=== PATIENT | female | born 1945 | race Caucasian/White ===

== ENCOUNTER 2019-01-24 14:21 | Outpatient (CLI) | payer MEDICARE ==
--- NOTE | 2019-01-24 15:57 | BD ---
Exam: DEXA Bone Density 01/24/19 PROVIDED CLINICAL HISTORY: Screening. Lumbar Spine: BMD (g/cm2) T-SCORE L1 0.904 -0.8 L2 0.978 -0.5 L3 1.036 -0.4 L4 1.141 0.7 L1-L4 1.018 0.3 Femoral Neck: 0.642 -1.9 Total Femur: 0.817 -1.0 Ten year fracture risk: Major osteoporotic fracture: 13% Hip fracture: 3%. Impression: Calculated bone mineral density meets WHO criteria for osteopenia in the left femoral neck and places the patient at increased risk for fracture. POS: [facility]
== END 2019-01-24 14:22 | disposition home or self-care (01) ==
LOC: BICMAMMO 14:21
PROVIDERS: ATTEND Family Medicine
DX: Z13.820 Encounter for screening for osteoporosis (principal); M85.852 Other specified disorders of bone density and structure, left thigh
CPT/HCPCS: 77080

== ENCOUNTER 2020-01-25 16:52 | Emergency (ER) | payer MEDICARE ==
[2020-01-25 17:43] LABS: #Basophils 0.1 thou/uL (0.0-0.2); #Eosinphils 0.2 thou/uL (0.0-0.7); #Lymphocytes 1.4 thou/uL (1.20-3.40); #Monocytes 0.3 thou/uL (0.11-0.59); #Neutrophils 2.8 thou/uL (1.40-6.50); %Basophils 1.4 % (0.0-1.0); %Eosinophils 4.6 % (0.0-10.0); %Lymphocytes 28.9 % (21.0-51.0); %Neutrophils 58.1 % (42.0-75.0); Hemoglobin 14.4 g/dL (12.0-16.0); Mean Corpuscular Hemoglobin 34.6 pg (27.0-31.0); Mean Corpuscular Volume 98.7 fL (78.0-98.0); Mean Platelet Volume 7.7 fL (7.4-10.4); Platelet Count 170 thou/uL (130-400); RBC Distribution Width 11.9 % (11.5-14.5); Red Blood Cell (RBC) Count 4.16 mill/uL (4.20-5.40); White Blood Cell (WBC) Count 4.8 thou/uL (4.8-10.8)
[2020-01-25 17:57] LABS: ALT (SGPT) 16 U/L (8-55); AST (SGOT) 24 U/L (5-34); Albumin 4.3 g/dL (3.4-4.8); Alkaline Phosphatase 63 U/L (40-110); Anion Gap 15 mmol/L (10-20); BUN (Urea Nitrogen) 17 mg/dL (9.8-20.1); Bilirubin, Total 0.6 mg/dL (0.2-1.2); Calc. Creatinine Clearance 0 mL/min (70-130); Calcium 9.1 mg/dL (7.8-10.44); Carbon Dioxide 24 mmol/L (23-31); Chloride 106 mmol/L (98-107); Estimated GFR-MDRD 50; Globulin 2.6 g/dL (2.4-3.5); Glucose 120 mg/dL (83-110); Protein, Total 6.9 g/dL (6.0-8.3); Sodium 141 mmol/L (136-145)
--- NOTE | 2020-01-25 20:09 | RAD ---
PORTABLE CHEST: Date: 01-25-2020 PROVIDED CLINICAL HISTORY: Light headedness and nausea FINDINGS: Comparison 02-06-17. Cardiac and mediastinal silhouette is within normal limits. No focal consolidation, pleural fluid or pneumothorax apparent. IMPRESSION: No evidence for an acute cardiopulmonary process. POS: [facility]
== END 2020-01-25 19:56 | disposition home or self-care (01) ==
LOC: ERS 16:52
DX: I49.1 Atrial premature depolarization (principal); E03.9 Hypothyroidism, unspecified; Z79.899 Other long term (current) drug therapy
CPT/HCPCS: 71045; 80053; 84443; 84484; 85025; 93005

== ENCOUNTER 2020-08-18 11:16 | Observation (INO) | payer MEDICARE ==
[2020-08-18 11:49] LABS: #Basophils 0.1 thou/uL (0.0-0.2); #Eosinphils 0.2 thou/uL (0.0-0.7); #Lymphocytes 1.2 thou/uL (1.20-3.40); #Monocytes 0.4 thou/uL (0.11-0.59); #Neutrophils 2.3 thou/uL (1.40-6.50); %Basophils 1.6 % (0.0-1.0); %Eosinophils 3.9 % (0.0-10.0); %Lymphocytes 28.8 % (21.0-51.0); %Monocytes 9.3 % (0.0-10.0); %Neutrophils 56.4 % (42.0-75.0); Hemoglobin 14.5 g/dL (12.0-16.0); Mean Corpuscular HGB CONC 35.3 g/dL (32.0-36.0); Mean Corpuscular Hemoglobin 34.6 pg (27.0-31.0); Mean Corpuscular Volume 98.1 fL (78.0-98.0); Mean Platelet Volume 8.1 fL (7.4-10.4); Platelet Count 139 thou/uL (130-400); Red Blood Cell (RBC) Count 4.19 mill/uL (4.20-5.40); White Blood Cell (WBC) Count 4.1 thou/uL (4.8-10.8)
[2020-08-18] MEDS ORDERED: Aspirin Chewable 81 MG TAB ONE (12:14)
[2020-08-18 12:21] LABS: ALT (SGPT) 18 U/L (8-55); AST (SGOT) 23 U/L (5-34); Alkaline Phosphatase 64 U/L (40-110); Anion Gap 14 mmol/L (10-20); BUN (Urea Nitrogen) 16 mg/dL (9.8-20.1); Bilirubin, Total 0.6 mg/dL (0.2-1.2); Calc. Creatinine Clearance 0 mL/min (70-130); Calcium 9.2 mg/dL (7.8-10.44); Carbon Dioxide 24 mmol/L (23-31); Chloride 107 mmol/L (98-107); Globulin 2.8 g/dL (2.4-3.5); Glucose 105 mg/dL (83-110); Protein, Total 6.8 g/dL (5.8-8.1); Sodium 141 mmol/L (136-145)
[2020-08-18] MEDS ORDERED: Acetaminophen 325 MG TAB PO PRN (14:30)
[2020-08-18 14:49] VITALS: BMI 29.7
[2020-08-18 15:32] LABS: Troponin I 0.012 ng/mL (< 0.028)
[2020-08-18 18:21] LABS: Troponin I Less than 0.010 ng/mL (< 0.028)
[2020-08-18] MEDS: rOPINIRole HCl 1 MG TAB PO SCH (20:15)
[2020-08-18] MEDS ORDERED: Amlodipine 5 MG TAB PO SCH (21:00)
[2020-08-18] MEDS ORDERED: ALPRAZolam 0.5 MG TAB PO SCH (21:00)
[2020-08-18 21:05] LABS: SARS-CoV-2 PCR by NAA Not Detected (NotDetected)
[2020-08-19] MEDS ORDERED: Thyroid 60 MG TAB PO SCH ×2 (06:00→09:00)
[2020-08-19] MEDS: rOPINIRole HCl 1 MG TAB PO SCH (08:02)
[2020-08-19] MEDS ORDERED: Metoprolol Tartrate 25 MG TAB PO SCH (09:00)
[2020-08-19 09:24] LABS: Anion Gap 11 mmol/L (10-20); BUN (Urea Nitrogen) 15 mg/dL (9.8-20.1); Calc. Creatinine Clearance 60 mL/min (70-130); Calcium 9.5 mg/dL (7.8-10.44); Carbon Dioxide 28 mmol/L (23-31); Chloride 106 mmol/L (98-107); Glucose 107 mg/dL (83-110); Magnesium 1.9 mg/dL (1.6-2.6); Potassium 4.1 mmol/L (3.5-5.1); Sodium 141 mmol/L (136-145)
[2020-08-19 12:49] VITALS: BP 130/62; TEMP 97.8
== END 2020-08-19 13:10 | disposition home or self-care (01) ==
LOC: ERS 11:16 → 2SW 12:56
PROVIDERS: ADMIT Internal Medicine; ATTEND Internal Medicine
DX: R07.89 Other chest pain (principal); R42 Dizziness and giddiness; R53.1 Weakness; R00.2 Palpitations; I12.9 Hypertensive chronic kidney disease with stage 1 through stage 4 chronic kidney disease, or unspecified chronic kidney disease; N18.30 Chronic kidney disease, stage 3 unspecified; R73.03 Prediabetes; E03.9 Hypothyroidism, unspecified; G43.909 Migraine, unspecified, not intractable, without status migrainosus; G25.81 Restless legs syndrome; K21.9 Gastro-esophageal reflux disease without esophagitis; G47.30 Sleep apnea, unspecified; D72.819 Decreased white blood cell count, unspecified; D75.89 Other specified diseases of blood and blood-forming organs; Z79.83 Long term (current) use of bisphosphonates; Z79.899 Other long term (current) drug therapy; Z20.822 Contact with and (suspected) exposure to COVID-19
CPT/HCPCS: 70450; 71045; 80048; 83735; 84484 ×2; 93005; 97116; 97139; 99285; G0378 ×3; U0003; U0005; 36415; 80053; 84443; 85025

== ENCOUNTER 2020-08-28 19:29 | Emergency (ER) | payer MEDICARE ==
[~2020-08-28 19:29] MED LIST: Iopamidol-370 76% 500 ML 1 ML ONE
[2020-08-28 20:07] LABS: #Eosinphils 0.3 thou/uL (0.0-0.7); #Lymphocytes 1.8 thou/uL (1.20-3.40); #Monocytes 0.4 thou/uL (0.11-0.59); #Neutrophils 2.1 thou/uL (1.40-6.50); %Basophils 0.6 % (0.0-1.0); %Eosinophils 5.6 % (0.0-10.0); %Lymphocytes 39.3 % (21.0-51.0); %Monocytes 8.1 % (0.0-10.0); %Neutrophils 46.3 % (42.0-75.0); Hemoglobin 14.2 g/dL (12.0-16.0); Mean Corpuscular HGB CONC 35.8 g/dL (32.0-36.0); Mean Corpuscular Hemoglobin 34.9 pg (27.0-31.0); Mean Corpuscular Volume 97.6 fL (78.0-98.0); Mean Platelet Volume 8.1 fL (7.4-10.4); Platelet Count 161 thou/uL (130-400); RBC Distribution Width 12.1 % (11.5-14.5); Red Blood Cell (RBC) Count 4.06 mill/uL (4.20-5.40); White Blood Cell (WBC) Count 4.6 thou/uL (4.8-10.8)
[2020-08-28 20:28] LABS: ALT (SGPT) 21 U/L (8-55); AST (SGOT) 28 U/L (5-34); Albumin 4.1 g/dL (3.4-4.8); Alkaline Phosphatase 74 U/L (40-110); Anion Gap 15 mmol/L (10-20); BUN (Urea Nitrogen) 14 mg/dL (9.8-20.1); Bilirubin, Total 0.6 mg/dL (0.2-1.2); CK (CPK) 91 U/L (29-168); Calc. Creatinine Clearance 0 mL/min (70-130); Calcium 9.4 mg/dL (7.8-10.44); Carbon Dioxide 21 mmol/L (23-31); Chloride 106 mmol/L (98-107); Globulin 3.1 g/dL (2.4-3.5); Glucose 143 mg/dL (83-110); Lipase 5 U/L (8-78); Potassium 3.8 mmol/L (3.5-5.1); Protein, Total 7.2 g/dL (5.8-8.1); Sodium 138 mmol/L (136-145)
[2020-08-28] MEDS ORDERED: Morphine 4 MG/ML VIAL ONE (20:30)
[2020-08-28] MEDS ORDERED: Ondansetron PF 4 MG/2 ML Vial ONE (20:30)
[2020-08-28] MEDS ORDERED: Nitroglycerin 0.4 MG TAB 1 EACH ONE (20:42)
[2020-08-28 22:55] LABS: Troponin I Less than 0.010 ng/mL (< 0.028)
== END 2020-08-28 23:30 | disposition home or self-care (01) ==
LOC: ERS 19:29
DX: R07.89 Other chest pain (principal); M54.2 Cervicalgia; R42 Dizziness and giddiness; E03.9 Hypothyroidism, unspecified; Z79.899 Other long term (current) drug therapy
CPT/HCPCS: 36415; 70496; 70498; 71045; 80053; 82550; 83690; 84484; 85025; 93005; 96374; 96375; J2270; J2405; Q9967

== ENCOUNTER 2020-09-06 22:14 | Observation (INO) | payer MEDICARE ==
[2020-09-06 22:36] LABS: #Basophils 0.1 thou/uL (0.0-0.2); #Eosinphils 0.3 thou/uL (0.0-0.7); #Lymphocytes 1.6 thou/uL (1.20-3.40); #Monocytes 0.4 thou/uL (0.11-0.59); %Basophils 1.8 % (0.0-1.0); %Eosinophils 6.7 % (0.0-10.0); %Lymphocytes 36.4 % (21.0-51.0); %Monocytes 9.1 % (0.0-10.0); %Neutrophils 46.1 % (42.0-75.0); Hemoglobin 14.3 g/dL (12.0-16.0); Mean Corpuscular HGB CONC 34.5 g/dL (32.0-36.0); Mean Corpuscular Hemoglobin 34.2 pg (27.0-31.0); Mean Corpuscular Volume 99.1 fL (78.0-98.0); Mean Platelet Volume 8.2 fL (7.4-10.4); Platelet Count 150 thou/uL (130-400); RBC Distribution Width 12.1 % (11.5-14.5); Red Blood Cell (RBC) Count 4.18 mill/uL (4.20-5.40); White Blood Cell (WBC) Count 4.4 thou/uL (4.8-10.8)
[2020-09-06 22:56] LABS: ALT (SGPT) 19 U/L (8-55); AST (SGOT) 26 U/L (5-34); Albumin 4.2 g/dL (3.4-4.8); Alkaline Phosphatase 64 U/L (40-110); Anion Gap 14 mmol/L (10-20); BUN (Urea Nitrogen) 12 mg/dL (9.8-20.1); Bilirubin, Total 0.6 mg/dL (0.2-1.2); Calc. Creatinine Clearance 0 mL/min (70-130); Calcium 9.2 mg/dL (7.8-10.44); Carbon Dioxide 24 mmol/L (23-31); Chloride 107 mmol/L (98-107); Globulin 3.1 g/dL (2.4-3.5); Glucose 132 mg/dL (83-110); Potassium 4.1 mmol/L (3.5-5.1); Protein, Total 7.3 g/dL (5.8-8.1); Sodium 141 mmol/L (136-145)
[2020-09-07] MEDS ORDERED: Aspirin Chewable 81 MG TAB ONE (02:02)
[2020-09-07 02:47] LABS: Troponin I Less than 0.010 ng/mL (< 0.028)
[2020-09-07 07:08] LABS: Troponin I Less than 0.010 ng/mL (< 0.028)
[2020-09-07 11:14] LABS: SARS-CoV-2 PCR by NAA Not Detected (NotDetected)
[2020-09-07 14:40] VITALS: BP 142/75; TEMP 97.6; BMI 29.9
[2020-09-07] MEDS ORDERED: Sodium Chloride 0.9% (PF) 10 ML VIAL FS PRN (15:15)
[2020-09-07] MEDS ORDERED: rOPINIRole HCl 1 MG TAB PO SCH ×2 (15:45→21:00)
[2020-09-07] MEDS ORDERED: Pantoprazole 40 MG VIAL IVP SCH (21:00)
== END 2020-09-07 16:25 | disposition home or self-care (01) ==
LOC: ERS 22:14 → ERHOLD 09-07 02:03 → 2SW 09-07 12:11
PROVIDERS: ADMIT Internal Medicine; ATTEND Internal Medicine
DX: R07.89 Other chest pain (principal); R10.13 Epigastric pain; E03.9 Hypothyroidism, unspecified; I10 Essential (primary) hypertension; G25.81 Restless legs syndrome; K76.0 Fatty (change of) liver, not elsewhere classified; I49.1 Atrial premature depolarization; K21.9 Gastro-esophageal reflux disease without esophagitis; G47.33 Obstructive sleep apnea (adult) (pediatric); Z79.83 Long term (current) use of bisphosphonates; Z79.899 Other long term (current) drug therapy; Z20.822 Contact with and (suspected) exposure to COVID-19
CPT/HCPCS: 71045; 80053; 83690; 84484 ×3; 85025; 93005 ×2; 93975; G0378 ×2; U0003; U0005; 36415

== ENCOUNTER 2021-01-31 14:09 | Outpatient (CLI) | payer MEDICARE | END 2021-01-31 14:10 | disposition home or self-care (01) | LOC: BICRAD 14:09 | PROVIDERS: ATTEND Family Medicine | DX: M54.2 Cervicalgia (principal); M25.512 Pain in left shoulder; M47.812 Spondylosis without myelopathy or radiculopathy, cervical region; M19.012 Primary osteoarthritis, left shoulder | CPT/HCPCS: 72052 ==

== ENCOUNTER 2021-03-07 12:38 | Outpatient (CLI) | payer MEDICARE | END 2021-03-07 12:39 | disposition home or self-care (01) | LOC: SCSMRI 12:38 | PROVIDERS: ATTEND Orthopaedic Surgery | DX: M75.102 Unspecified rotator cuff tear or rupture of left shoulder, not specified as traumatic (principal); S43.432A Superior glenoid labrum lesion of left shoulder, initial encounter; S43.002A Unspecified subluxation of left shoulder joint, initial encounter ==

== ENCOUNTER 2021-08-16 16:48 | Inpatient (IN) | payer MEDICARE ==
[2021-08-16 17:24] LABS: #Eosinphils 0.2 thou/uL (0.0-0.7); #Monocytes 0.4 thou/uL (0.11-0.59); #Neutrophils 2.9 thou/uL (1.40-6.50); %Basophils 0.5 % (0.0-1.0); %Eosinophils 3.8 % (0.0-10.0); %Lymphocytes 35.9 % (21.0-51.0); %Monocytes 7.3 % (0.0-10.0); %Neutrophils 52.5 % (42.0-75.0); Hemoglobin 13.2 g/dL (12.0-16.0); Mean Corpuscular HGB CONC 33.9 g/dL (32.0-36.0); Mean Corpuscular Hemoglobin 34.1 pg (27.0-31.0); Mean Platelet Volume 7.8 fL (7.4-10.4); Platelet Count 183 thou/uL (130-400); RBC Distribution Width 11.8 % (11.5-14.5); Red Blood Cell (RBC) Count 3.88 mill/uL (4.20-5.40); White Blood Cell (WBC) Count 5.5 thou/uL (4.8-10.8)
[2021-08-16 17:45] LABS: ALT (SGPT) 25 U/L (8-55); AST (SGOT) 29 U/L (5-34); Albumin 4.2 g/dL (3.4-4.8); Alkaline Phosphatase 71 U/L (40-110); Anion Gap 14 mmol/L (10-20); BUN (Urea Nitrogen) 20 mg/dL (9.8-20.1); Bilirubin, Total 0.6 mg/dL (0.2-1.2); Calc. Creatinine Clearance 0 mL/min (70-130); Calcium 9.2 mg/dL (7.8-10.44); Carbon Dioxide 24 mmol/L (23-31); Chloride 104 mmol/L (98-107); Globulin 2.7 g/dL (2.4-3.5); Glucose 88 mg/dL (83-110); Lipase 4 U/L (8-78); Potassium 4.1 mmol/L (3.5-5.1); Protein, Total 6.9 g/dL (5.8-8.1); Sodium 138 mmol/L (136-145)
[2021-08-16] MEDS ORDERED: Aspirin 325 MG TAB ONE (17:55)
[2021-08-16] MEDS ORDERED: Nitroglycerin 2% Ointment 1 INCH/1 GM Packet ONE (18:16)
[2021-08-16 20:43] VITALS: BMI 31.8
[2021-08-16] MEDS ORDERED: Meclizine HCl 25 MG TAB PO PRN (22:06)
[2021-08-16] MEDS ORDERED: valACYclovir 500 MG TAB PO PRN (22:06)
[2021-08-16] MEDS ORDERED: ALPRAZolam 0.5 MG TAB PO SCH (23:00)
[2021-08-16] MEDS ORDERED: rOPINIRole HCl 1 MG TAB PO SCH (23:00)
[2021-08-16] MEDS ORDERED: Morphine 2 MG/ML VIAL SLOW IVP PRN (23:45)
[2021-08-16] MEDS ORDERED: Lisinopril 10 MG TAB PO SCH (23:59)
[2021-08-17] MEDS ORDERED: Ondansetron ODT 4 MG TAB PO PRN (01:03)
[2021-08-17] MEDS ORDERED: Ondansetron PF 4 MG/2 ML Vial IVP PRN (01:03)
[2021-08-17] MEDS ORDERED: Acetaminophen 650 MG Suppository PR PRN (01:03)
[2021-08-17] MEDS ORDERED: Nitroglycerin 0.4 MG TAB (25 Tab Bottle) SL PRN (04:12)
[2021-08-17 04:39] LABS: #Eosinphils 0.2 thou/uL (0.0-0.7); #Lymphocytes 1.5 thou/uL (1.20-3.40); #Monocytes 0.4 thou/uL (0.11-0.59); #Neutrophils 2.4 thou/uL (1.40-6.50); %Basophils 0.7 % (0.0-1.0); %Eosinophils 5.3 % (0.0-10.0); %Lymphocytes 32.7 % (21.0-51.0); %Monocytes 8.7 % (0.0-10.0); %Neutrophils 52.6 % (42.0-75.0); Hemoglobin 12.6 g/dL (12.0-16.0); Mean Corpuscular Hemoglobin 34.4 pg (27.0-31.0); Mean Platelet Volume 7.5 fL (7.4-10.4); Platelet Count 146 thou/uL (130-400); RBC Distribution Width 11.6 % (11.5-14.5); Red Blood Cell (RBC) Count 3.67 mill/uL (4.20-5.40); White Blood Cell (WBC) Count 4.5 thou/uL (4.8-10.8)
[2021-08-17 04:58] LABS: Anion Gap 10 mmol/L (10-20); BUN (Urea Nitrogen) 20 mg/dL (9.8-20.1); Calc. Creatinine Clearance 56 mL/min (70-130); Calcium 8.7 mg/dL (7.8-10.44); Carbon Dioxide 25 mmol/L (23-31); Chloride 107 mmol/L (98-107); Glucose 111 mg/dL (83-110); Sodium 138 mmol/L (136-145)
[2021-08-17] MEDS ORDERED: ADENOSINE 60 MG/20 ML VIAL ONE (08:44)
[2021-08-17 12:00] LABS: SARS-CoV-2 PCR by NAA Not Detected (NotDetected)
[2021-08-17] MEDS: rOPINIRole HCl 1 MG TAB PO SCH ×3 (13:25→21:08)
[2021-08-17] MEDS: Aspirin Chewable 81 MG TAB PO SCH (13:25)
[2021-08-17] MEDS: Lisinopril 10 MG TAB PO SCH (21:08)
[2021-08-17] MEDS: ALPRAZolam 0.5 MG TAB PO SCH (21:08)
[2021-08-17] MEDS: Bisacodyl 5 MG TAB PO SCH (21:08)
[2021-08-18] MEDS ORDERED: Communication Order-Pharmacy FS SCH (08:45)
[2021-08-18] MEDS ORDERED: Sodium Chloride 0.9% 1,000 ML IV SCH ×2 (08:45→14:41)
[2021-08-18] MEDS ORDERED: Iopamidol 370 76% 100 ML VIAL ONE (08:53)
[2021-08-18] MEDS ORDERED: Iopamidol 370 76% 50 ML VIAL FS ONE (08:53)
[2021-08-18] MEDS: Aspirin Chewable 81 MG TAB PO SCH (09:31)
[2021-08-18] MEDS ORDERED: Lidocaine 1% (PF) 30 ML VIAL ONE (12:52)
[2021-08-18] MEDS ORDERED: Fentanyl 100 MCG/2 ML VIAL ONE (13:40)
[2021-08-18] MEDS ORDERED: Midazolam HCl 2 mg/2 ml Vial ONE (13:40)
[2021-08-18] MEDS ORDERED: Heparin 10,000 UNITS/ 10 ML VIAL ONE (13:41)
[2021-08-18] MEDS ORDERED: Adenosine 6 MG/2 ML VIAL ONE (14:08)
[2021-08-18] MEDS ORDERED: Bivalirudin 250 MG VIAL ONE (14:08)
[2021-08-18] MEDS: rOPINIRole HCl 1 MG TAB PO SCH ×3 (15:33→22:10)
[2021-08-18] MEDS ORDERED: Acetaminophen 325 MG TAB ONE (15:42)
[2021-08-18] MEDS: Acetaminophen 325 MG TAB PO PRN ×2 (15:45→22:56)
[2021-08-18] MEDS ORDERED: Rosuvastatin 10 MG TAB PO SCH (21:00)
[2021-08-18] MEDS: Lisinopril 10 MG TAB PO SCH (22:09)
[2021-08-18] MEDS: Bisacodyl 5 MG TAB PO SCH (22:09)
[2021-08-18] MEDS: ALPRAZolam 0.5 MG TAB PO SCH (22:11)
[2021-08-19 05:50] LABS: #Eosinphils 0.1 thou/uL (0.0-0.7); #Lymphocytes 1.2 thou/uL (1.20-3.40); #Monocytes 0.4 thou/uL (0.11-0.59); #Neutrophils 2.8 thou/uL (1.40-6.50); %Basophils 0.4 % (0.0-1.0); %Eosinophils 2.6 % (0.0-10.0); %Lymphocytes 26.2 % (21.0-51.0); %Monocytes 7.8 % (0.0-10.0); %Neutrophils 62.9 % (42.0-75.0); Hemoglobin 13.7 g/dL (12.0-16.0); Mean Corpuscular HGB CONC 33.4 g/dL (32.0-36.0); Mean Corpuscular Hemoglobin 34.1 pg (27.0-31.0); Mean Platelet Volume 7.9 fL (7.4-10.4); Platelet Count 159 thou/uL (130-400); RBC Distribution Width 11.7 % (11.5-14.5); Red Blood Cell (RBC) Count 4.02 mill/uL (4.20-5.40); White Blood Cell (WBC) Count 4.5 thou/uL (4.8-10.8)
[2021-08-19] MEDS ORDERED: Levothyroxine Sodium 25 MCG TAB PO SCH (06:00)
[2021-08-19 06:12] LABS: ALT (SGPT) 21 U/L (8-55); AST (SGOT) 23 U/L (5-34); Albumin 3.9 g/dL (3.4-4.8); Alkaline Phosphatase 59 U/L (40-110); Anion Gap 11 mmol/L (10-20); BUN (Urea Nitrogen) 15 mg/dL (9.8-20.1); Bilirubin, Total 0.6 mg/dL (0.2-1.2); Calc. Creatinine Clearance 74 mL/min (70-130); Calcium 8.9 mg/dL (7.8-10.44); Carbon Dioxide 24 mmol/L (23-31); Chloride 106 mmol/L (98-107); Globulin 2.8 g/dL (2.4-3.5); Glucose 120 mg/dL (83-110); Potassium 3.8 mmol/L (3.5-5.1); Protein, Total 6.7 g/dL (5.8-8.1); Sodium 137 mmol/L (136-145)
[2021-08-19 07:46] VITALS: BP 150/71; TEMP 97.9
[2021-08-19] MEDS: Aspirin Chewable 81 MG TAB PO SCH (09:03)
[2021-08-19] MEDS: rOPINIRole HCl 1 MG TAB PO SCH (09:04)
== END 2021-08-19 11:35 | disposition home or self-care (01) | DRG 287 ==
LOC: ERS 16:48 → 2SW 18:24 → OBSVTOIN 08-17 17:58
PROVIDERS: ADMIT Internal Medicine; ATTEND Internal Medicine
PROC: 4A023N7 Measurement of Cardiac Sampling and Pressure, Left Heart, Percutaneous Approach (ICD-10-PCS; principal; 2021-08-18)
PROC: B2111ZZ Fluoroscopy of Multiple Coronary Arteries using Low Osmolar Contrast (ICD-10-PCS; 2021-08-18)
PROC: B2151ZZ Fluoroscopy of Left Heart using Low Osmolar Contrast (ICD-10-PCS; 2021-08-18)
DX: R07.89 Other chest pain (principal); E03.9 Hypothyroidism, unspecified; G25.81 Restless legs syndrome; R53.1 Weakness; D75.89 Other specified diseases of blood and blood-forming organs; G47.33 Obstructive sleep apnea (adult) (pediatric); I11.0 Hypertensive heart disease with heart failure; J98.4 Other disorders of lung; R51.9 Headache, unspecified; R11.2 Nausea with vomiting, unspecified; R40.0 Somnolence; I50.9 Heart failure, unspecified; Z20.822 Contact with and (suspected) exposure to COVID-19; Z99.81 Dependence on supplemental oxygen; Z91.19 Patient's noncompliance with other medical treatment and regimen; Z90.49 Acquired absence of other specified parts of digestive tract; Z98.890 Other specified postprocedural states; Z72.89 Other problems related to lifestyle; Z79.890 Hormone replacement therapy; Z79.899 Other long term (current) drug therapy; Z86.16 Personal history of COVID-19; Z79.82 Long term (current) use of aspirin
CPT/HCPCS: 36415; 71045; 71250; 78452; 80048; 80053; 82607; 82746; 83690; 83735; 83880; 84100; 84484; 85025; 85347; 93005; 93010; 93017; 93458; 93571; 94760; 96374; 99152; 99153; A9500; C1769; G0378; J0153; J0583; J1644; J2001; J2250; J2270; J2405; J3010; J7050; Q0162; Q9967; U0003; U0005

== ENCOUNTER 2021-09-16 19:00 | Outpatient (CLI) | payer MEDICARE | END 2021-09-16 19:01 | disposition home or self-care (01) | LOC: SLEEPLAB 19:00 | PROVIDERS: ATTEND Family Medicine | DX: G47.33 Obstructive sleep apnea (adult) (pediatric) (principal); G47.10 Hypersomnia, unspecified; R06.83 Snoring; E66.9 Obesity, unspecified; Z68.27 Body mass index [BMI] 27.0-27.9, adult | CPT/HCPCS: 95811 ==

== ENCOUNTER 2021-11-21 13:13 | Outpatient (CLI) | payer MEDICARE | END 2021-11-21 13:14 | disposition home or self-care (01) | LOC: RAD 13:13 | PROVIDERS: ATTEND Family Medicine | DX: M25.551 Pain in right hip (principal); M54.50 Low back pain, unspecified; M47.816 Spondylosis without myelopathy or radiculopathy, lumbar region; M16.11 Unilateral primary osteoarthritis, right hip | CPT/HCPCS: 72100 ==

== ENCOUNTER 2022-03-15 16:40 | Emergency (ER) | payer MEDICARE ==
[2022-03-15 17:26] LABS: #Eosinphils 0.3 thou/uL (0.0-0.7); #Lymphocytes 1.4 thou/uL (1.20-3.40); #Monocytes 0.5 thou/uL (0.11-0.59); #Neutrophils 2.8 thou/uL (1.40-6.50); %Basophils 0.5 % (0.0-1.0); %Eosinophils 6.6 % (0.0-10.0); %Lymphocytes 28.5 % (21.0-51.0); %Monocytes 9.3 % (0.0-10.0); %Neutrophils 55.2 % (42.0-75.0); Hemoglobin 13.3 g/dL (12.0-16.0); Mean Corpuscular Hemoglobin 35.1 pg (27.0-31.0); Mean Platelet Volume 7.7 fL (7.4-10.4); Platelet Count 164 10x3/uL (130-400); RBC Distribution Width 11.8 % (11.5-14.5)
[2022-03-15 17:37] LABS: ALT (SGPT) 18 U/L (8-55); AST (SGOT) 26 U/L (5-34); Albumin 4.2 g/dL (3.4-4.8); Alkaline Phosphatase 56 U/L (40-110); Anion Gap 15 mmol/L (10-20); BUN (Urea Nitrogen) 16 mg/dL (9.8-20.1); Bilirubin, Total 0.7 mg/dL (0.2-1.2); Calc. Creatinine Clearance 0 mL/min (70-130); Calcium 9.1 mg/dL (7.8-10.44); Carbon Dioxide 24 mmol/L (23-31); Chloride 96 mmol/L (98-107); Estimated GFR 51; Globulin 2.9 g/dL (2.4-3.5); Glucose 114 mg/dL (83-110); Potassium 3.8 mmol/L (3.5-5.1); Protein, Total 7.1 g/dL (5.8-8.1); Sodium 131 mmol/L (136-145)
== END 2022-03-15 19:10 | disposition home or self-care (01) ==
LOC: ERS 16:40
DX: R07.9 Chest pain, unspecified (principal); I10 Essential (primary) hypertension
CPT/HCPCS: 71045; 80053; 84484; 85025; 87804; 93005